=== PATIENT | male | born 1950 | race Caucasian/White ===

== ENCOUNTER 2018-07-07 14:25 | Outpatient (CLI) | payer MEDICARE ==
[2018-07-07] MEDS ORDERED: Iopamidol 370 76% 100 ML VIAL ONE (14:26)
== END 2018-07-07 14:26 | disposition home or self-care (01) ==
LOC: BICCT 14:25
PROVIDERS: ATTEND Surgery
DX: R10.9 Unspecified abdominal pain (principal); K42.9 Umbilical hernia without obstruction or gangrene; K40.20 Bilateral inguinal hernia, without obstruction or gangrene, not specified as recurrent; N20.0 Calculus of kidney; I70.8 Atherosclerosis of other arteries; E27.8 Other specified disorders of adrenal gland
CPT/HCPCS: 74177; 82565